=== PATIENT | female | born 1975 | race Asian ===

== ENCOUNTER 2022-05-27 12:05 | Emergency (ER) | payer OTHER ==
[2022-05-27 12:34] LABS: BASOPHILS % (AUTO) 0.7 %; EOSINOPHILS # (AUTO) 0.2 10^3/uL (0.0-0.7); EOSINOPHILS % (AUTO) 3.9 %; HGB - HEMOGLOBIN 13.6 g/dL (12.0-16.0); LYMPHOCYTES # (AUTO) 2.2 10^3/uL (1.5-3.5); LYMPHOCYTES % (AUTO) 40.6 %; MEAN CORPUSCULAR HGB CONC 33.2 g/dL (32.0-36.0); MEAN CORPUSCULAR VOLUME 93.4 fL (81.0-99.0); MEAN PLATELET VOLUME 8.6 fL (7.9-10.8); MONOCYTES # (AUTO) 0.4 10^3/uL (0.0-1.0); MONOCYTES % (AUTO) 6.8 %; NEUTROPHILS # (AUTO) 2.6 10^3/uL (1.5-6.6); NEUTROPHILS % (AUTO) 47.8 %; PLT - PLATELET COUNT 256 10^3/uL (130-450); RED BLOOD COUNT 4.39 10^6/uL (4.20-5.40); RED CELL DISTRIBUTION WIDTH 11.3 % (12.0-15.0); WHITE BLOOD COUNT 5.5 x10^3/uL (4.8-10.8)
[2022-05-27 12:47] LABS: ALBUMIN 3.9 g/dL (3.2-5.5); ALBUMIN/GLOBULIN RATIO 1.3 (1.0-2.2); BILIRUBIN,TOTAL 0.5 mg/dL (0.2-1.0); CALCIUM 9.1 mg/dL (8.5-10.3); CREATININE 0.9 mg/dL (0.4-1.0); POTASSIUM 3.8 mmol/L (3.5-5.0)
[2022-05-27 12:52] LABS: BILIRUBIN,URINE NEGATIVE (NEGATIVE); GLUCOSE, URINE (UA) NEGATIVE (NEGATIVE); KETONES,URINE (UA) NEGATIVE (NEGATIVE); LEUKOCYTE ESTERASE, URINE NEGATIVE (NEGATIVE)
[2022-05-27 12:54] LABS: CLARITY,URINE CLEAR (CLEAR)
[2022-05-27 12:56] LABS: HCG UR QUAL NEGATIVE
[2022-05-27 13:00] LABS: BACTERIA,URINE Few /HPF (None Seen); RBC,URINE 0-5 /HPF (0-5); SQUAMOUS EPITHELIAL CELL,UR FEW Squamous (<= Few); WBC,URINE 0-3 /HPF (0-5)
--- NOTE | 2022-05-27 13:01 | ED Physician Documentation ---
History of Present Illness - Stated complaint Stated Complaint: ABD PX - Chief complaint Chief Complaint: Abd Pain - History obtained from History obtained from: Patient - Additonal information Additional information: The patient comes to the emergency department with chief complaint of left lower quadrant discomfort that has been steady for approximately the last week. She states that she has not been nauseated or vomiting and has had no fevers. She has had chills, especially at night, and these have kept her awake. The patient denies any hematuria but has had some mild dysuria. She states it feels a lot like when she had a urinary tract infection before. No bowel changes. No chest symptoms. The patient states she is otherwise healthy. No other complaints at this time. Review of Systems Ten Systems: 10 systems reviewed and negative Constitutional: reports: Reviewed and negative Eyes: reports: Reviewed and negative Ears: reports: Reviewed and negative Nose: reports: Reviewed and negative Throat: reports: Reviewed and negative Cardiac: reports: Reviewed and negative Respiratory: reports: Reviewed and negative GI: reports: Abdominal Pain : reports: Dysuria Skin: reports: Reviewed and negative Musculoskeletal: reports: Reviewed and negative Neurologic: reports: Reviewed and negative Psychiatric: reports: Reviewed and negative Endocrine: reports: Reviewed and negative Immunocompromised: reports: Reviewed and negative PD PAST MEDICAL HISTORY - Allergies Allergies/Adverse Reactions: Allergies Allergy/AdvReac Type Severity Reaction Status Date / Time No Known Drug Allergies Allergy Verified 05/27/22 12:15 PD ED PE NORMAL - Vitals Vital signs reviewed: Yes - General General: Alert and oriented X 3, No acute distress, Well developed/nourished - HEENT HEENT: Atraumatic, PERRL, EOMI, Moist mucous membranes - Neck Neck: Supple, no meningeal sign - Cardiac Cardiac: RRR, No murmur, Strong equal pulses - Respiratory Respiratory: No respiratory distress, Clear bilaterally - Abdomen Abdomen: Soft, Non distended, Other (Mild left lower quadrant tenderness, no rebound or guarding.) - Derm Derm: Normal color, Warm and dry, No rash - Extremities Extremities: No deformity, No edema - Neuro Neuro: Alert and oriented X 3, Other (Grossly intact) - Psych Psych: Normal mood, Normal affect Results - Vitals Vitals: Vital Signs - 24 hr 05/27/22 05/27/22 12:15 14:16 Temperature 37.1 C Heart Rate 66 58 L Respiratory 20 18 Rate Blood Pressure 123/57 L 94/63 O2 Saturation 99 100 Oxygen O2 Source Room air - Labs Labs: Laboratory Tests 05/27/22 05/27/22 05/27/22 12:23 12:29 12:29 WBC 5.5 RBC 4.39 Hgb 13.6 Hct 41.0 MCV 93.4 MCH 31.0 MCHC 33.2 RDW 11.3 L Plt Count 256 MPV 8.6 Neut # (Auto) 2.6 Lymph # (Auto) 2.2 Steele # (Auto) 0.4 Eos # (Auto) 0.2 Baso # (Auto) 0.0 Absolute Nucleated RBC 0.00 Nucleated RBC % 0.0 Sodium 136 Potassium 3.8 Chloride 103 Carbon Dioxide 25 Anion Gap 8.0 BUN 14 Creatinine 0.9 Estimated GFR (MDRD) 68 L Glucose 111 H Calcium 9.1 Total Bilirubin 0.5 AST 21 ALT 18 Alkaline Phosphatase 36 L Total Protein 7.0 Albumin 3.9 Globulin 3.1 Albumin/Globulin Ratio 1.3 Lipase 41 Urine Color ORANGE Urine Clarity CLEAR Urine pH Ur Specific Dearing Urine Protein Urine Glucose (UA) NEGATIVE Urine Ketones NEGATIVE Urine Occult Blood Urine Nitrite Urine Bilirubin NEGATIVE Urine Urobilinogen Ur Leukocyte Esterase NEGATIVE Urine RBC 0-5 Urine WBC 0-3 Ur Squamous Epith Cells FEW Squamous Urine Bacteria Few Ur Microscopic Review INDICATED Urine Culture Comments NOT INDICATED Urine HCG, Qual NEGATIVE PD MEDICAL DECISION MAKING - ED course Complexity details: reviewed results, re-evaluated patient, considered differential, d/w patient ED course: The patient declined symptomatic treatment in the emergency department. Her laboratory studies were unremarkable, including a normal white blood cell count. The patient has been taking Azo at home, which did interfere somewhat with the urinalysis micro. At this time, the patient was pending final interpretation of CT scan of the abdomen pelvis which was done in the emergency department to evaluate her left lower quadrant pain. She was signed out to Dr. Lam, pending final interpretation and disposition. Departure - Departure Clinical Impression: Abdominal pain Qualifiers: Abdominal location: left lower quadrant Qualified Code(s): R10.32 - Left lower quadrant pain Condition: Stable Instructions: ED Abdominal Pain Female Non-Specific Abdominal Pain Comments: Your blood work looks good. Your urinalysis does not show obvious signs of infection, though it has been sent for culture. If this comes back positive for a significant amount of bacteria, you will be called at home and a prescription will be sent for antibiotics. Because your urinalysis did not show anything of significance at this time, you were sent for CT scan of the abdomen and pelvis to evaluate for other potential causes of your lower abdominal pain. This also did not show anything emergent.
[2022-05-27] MEDS ORDERED: iohexoL-300 100 ML VIAL ONE (14:19)
--- NOTE | 2022-05-27 15:19 | CT Report ---
PROCEDURE: ABDOMEN/PELVIS W INDICATIONS: LLQ abd pain CONTRAST: Omni 300 100 ml TECHNIQUE: After the administration of IV contrast, 5 mm thick sections acquired from the diaphragms to the symp hysis. 5 mm thick coronal and sagittal reformats were acquired. For radiation dose reduction, the f ollowing was used: automated exposure control, adjustment of mA and/or kV according to patient size. COMPARISON: None. FINDINGS: Image quality: Excellent. ABDOMEN: Lung bases: Bibasilar dependent atelectasis are seen posteriorly. Heart size is normal. Solid organs: There is hepatomegaly, no discrete hepatic lesion. Spleen is normal in size and enhance ment. Gallbladder is contracted and shows no gross abnormality. Biliary system is non dilated. Panc reas enhances normally. No adrenal nodules. Kidneys demonstrate normal size and enhancement, withou t hydronephrosis. Peritoneum and bowel: Marked fluid distended stomach lumen is noted with suggestion of mild gastric wall thickening. No discrete gastric wall mass is noted. Bowel loops demonstrate normal wall thicknes s and caliber. No free fluid or air. Mild sigmoid diverticulosis is seen without sigmoid colon wall thickening or mesenteric fat stranding. No abscess collection. Nodes and vessels: No retroperitoneal or mesenteric adenopathy by size criteria. Aorta and inferior vena cava are normal in size. Miscellaneous: No ventral hernias. PELVIS: Genitourinary: Bladder wall thickness is normal. Miscellaneous: No inguinal hernias or adenopathy. Uterus is within normal limits. There is suggesti on of a small left ovarian cyst measures 2.2 x 2.2 cm in size. Bones: No suspicious bony lesions. No vertebral body compression fractures. IMPRESSION: 1. Markedly fluid distended stomach lumen with mild gastric wall thickening which may represent gastr itis and gastroparesis suggest clinical correlation. No bowel obstruction. No small bowel or colon wa ll thickening. Mild sigmoid diverticulosis without CT evidence of acute diverticulitis. 2. Hepatomegaly, no discrete hepatic lesion. Contracted gallbladder and show no gross abnormalities. 3. No renal stones or hydronephrosis. No hydroureter. Normal-appearing urinary bladder. 4. Suggestion of 2.2 cm left ovarian cyst. Reviewed by: Jared Post MD on 05/27/2022 3:17 PM PST Approved by: Jared Post MD on 05/27/2022 3:17 PM PST Station ID: [id number]
--- NOTE | 2022-05-27 15:41 | ED Physician Documentation ---
ED Addendum - Addendum Addendum: 05/27/22 15:[address] Hernandez at shift change. Briefly this is a 46-year-old woman with a weeks worth of left lower quadrant pain. Signed out pending CT imaging. This was reviewed with the patient noting that the likely cause of left lower quadrant pain is the 2.2 cm ovarian cyst and we discussed the need for follow-up ultrasonography on this. We also discussed the finding of the dilated gastrum, she admits that she had had a large lunch just before presentation and she has no upper abdominal pain so I did do not think this is anything relevant to her serious but follow-up was advised. Diagnosis: 1. Abdominal pain 2. Left ovarian cyst Disposition: Discharged home Condition: Stable
[2022-05-27 15:53] VITALS: BP 108/78
[2022-05-27] MEDS ORDERED: iohexoL-300 100 ML VIAL IVP ONE (17:54)
== END 2022-05-27 15:52 | disposition home or self-care (01) ==
LOC: ED 12:05
DX: N83.202 Unspecified ovarian cyst, left side (principal)
CPT/HCPCS: 36415; 74177; 80053; 81001; 81025; 83690; 85025; 99282; 99284; Q9967; 81003; 87086

== ENCOUNTER 2022-06-06 23:16 | Outpatient (CLI) | payer OTHER | END 2022-06-06 23:17 | disposition critical access hospital (66) | LOC: EMS 23:16 | DX: M54.50 Low back pain, unspecified (principal) | CPT/HCPCS: A0425; A0429 ==

== ENCOUNTER 2022-06-06 23:34 | Emergency (ER) | payer OTHER ==
[2022-06-06] MEDS ORDERED: methocarbamoL 500 MG TABLET PO STA (23:57)
[2022-06-06] MEDS ORDERED: KETOROLAC 30 MG/ML VIAL IM STA (23:57)
--- NOTE | 2022-06-07 00:02 | ED Physician Documentation ---
History of Present Illness - Stated complaint Stated Complaint: LOWER BACK PAIN X 5 DAYS (WITH MOVEMENT) - Chief complaint Chief Complaint: Back Pain - History obtained from History obtained from: Patient - Additonal information Additional information: 46-year-old woman with past medical history of back problems presents with lower back strain 5 days ago the slightly improved but then became worse again yesterday when she bent in a certain direction, experiencing sudden onset sharp intermittent pain, worse with movement. Pain is bilateral lower back, nonradiating, worse with any movement, 02/20. denies fever, urinary sx, hematuria, midline back pain, fnd. Review of Systems Constitutional: denies: Fever Musculoskeletal: reports: Back pain. denies: Neck pain, Extremity pain Neurologic: denies: Focal weakness, Numbness PD PAST MEDICAL HISTORY - Past Medical History Past Medical History: No - Past Surgical History Past Surgical History: No - Present Medications Home Medications: Ambulatory Orders Medication Instructions Recorded Confirmed Drospirenone/Estetrol [Nextstellis 1 tab PO DAILY 06/06/22 06/06/22 3-14.2 mg Tablet] methocarbamoL [Robaxin] 500 mg PO Q6H #20 tablet 06/06/22 - Allergies Allergies/Adverse Reactions: Allergies Allergy/AdvReac Type Severity Reaction Status Date / Time No Known Drug Allergies Allergy Verified 06/06/22 23:42 - Social History Does the pt smoke?: No Smoking Status: Never smoker Does the pt drink ETOH?: Yes Does the pt have substance abuse?: No - Immunizations Immunizations are current?: Yes - POLST Patient has POLST: No PD ED PE NORMAL - Vitals Vital signs reviewed: Yes - General General: Alert and oriented X 3, No acute distress, Well developed/nourished - HEENT HEENT: Atraumatic, PERRL, EOMI - Neck Neck: No bony TTP - Back Back: No spinal TTP, Other (BL back ttp in muscle distribution along lumbar back. ) - Derm Derm: Normal color, Warm and dry, No rash - Extremities Extremities: Other (BL LE pulses present. 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 improved s/p toradol and robaxin. rx sent to pharmacy. return precautions given. plan to f/u with [facility] [place]. Departure - Departure Clinical Impression: Back pain Condition: Stable Instructions: ED Low Back Pain Injury Prescriptions: methocarbamoL [Robaxin] 500 mg PO Q6H #20 tablet Comments: You are seen in the emergency department for back spasm. Please take your muscle relaxer as prescribed. Return to the emergency department if you have any new or worsening symptoms or other concerns. Follow-up with [facility] [place]. Prescription for Robaxin sent electronically to [facility] [place].
[2022-06-07] MEDS ORDERED: HYDROmorphone 1 MG/ML CARPUJECT IM STA (00:47)
[2022-06-07] MEDS ORDERED: KETOROLAC 30 MG/ML VIAL IM STA (01:05)
[2022-06-07 01:56] LABS: BILIRUBIN,URINE NEGATIVE (NEGATIVE); GLUCOSE, URINE (UA) NEGATIVE (NEGATIVE); KETONES,URINE (UA) NEGATIVE (NEGATIVE); LEUKOCYTE ESTERASE, URINE NEGATIVE (NEGATIVE); NITRITE,URINE NEGATIVE (NEGATIVE); OCCULT BLOOD,URINE TRACE-INTA (NEGATIVE); PROTEIN,URINE NEGATIVE (NEGATIVE); UROBILINOGEN,URINE 0.2 (NORMAL) E.U./dL (NORMAL)
[2022-06-07 01:57] LABS: CLARITY,URINE CLEAR (CLEAR)
[2022-06-07] MEDS ORDERED: LORazepam 2 MG/ML VIAL IM STA (01:57)
[2022-06-07] MEDS ORDERED: CYCLOBENZAPRINE 10 MG TABLET PO STA (01:58)
[2022-06-07] MEDS ORDERED: ACETAMINOPHEN 325 MG TABLET PO STA (01:58)
[2022-06-07 02:02] LABS: BACTERIA,URINE None Seen /HPF (None Seen); RBC,URINE 0-5 /HPF (0-5); SQUAMOUS EPITHELIAL CELL,UR FEW Squamous (<= Few); WBC,URINE 0-3 /HPF (0-5)
[2022-06-07] MEDS ORDERED: CYCLOBENZAPRINE 10 MG Prepack 2 PO PRN (02:57)
[2022-06-07 03:13] VITALS: BP 112/71
== END 2022-06-07 03:12 | disposition home or self-care (01) ==
LOC: EDUNIT# → ED 23:34
DX: M54.50 Low back pain, unspecified (principal)
CPT/HCPCS: 81001; 96372; 99282; 99283; A9270; J1170; J2060; 87086